=== PATIENT | male | born 1980 | race Caucasian/White ===

== ENCOUNTER 2021-09-11 05:36 | Emergency (ER) | payer OTHER ==
[2021-09-11 05:52] VITALS: BP 134/93; PULSE 81; RESP 18; TEMP 97.3
[2021-09-11] MEDS ORDERED: HYDROcodone/APAP 5-325MG 1 EACH TAB PO STA (06:04)
[2021-09-11] MEDS ORDERED: LIDOCAINE 1% INJ 10MG/ML (20 ML MDV) SQ ONE (06:14)
--- NOTE | 2021-09-11 06:17 | ED ---
Upper Extremity HPI - General Chief Complaint: Extremity Injury, Upper Stated Complaint: [facility] - Left Index finger injury Time Seen by Provider: 09/11/21 06:00 Source: patient, RN notes reviewed Mode of arrival: ambulatory Limitations: no limitations - History of Present Illness Initial Comments: This is a 41 year old male who presents to the emergency department with a laceration to the left index finger. States that he got this caught inbetween a machine at work this morning. Injury occurred 30 min prior to arrival. Pain is fairly severe, he is able to bend the PIP joint of the left index finger but not the DIP joint. Patient is unsure when his last Tetanus vaccine was. Also states that the machine was very dirty and he picked several glass shards out of his hand. MD Complaint: Injury to:: left, finger Other Injuries: none Place: work Treatments Prior to Arrival: cold therapy - Related Data Previous Rx's Medication Instructions Recorded Cephalexin [Keflex] 1 g PO BID 5 Days #10 cap 09/11/21 Allergies Allergy/AdvReac Type Severity Reaction Status Date / Time No Known Allergies Allergy Verified 09/11/21 05:47 Review of Systems ROS Statement: Those systems with pertinent positive or pertinent negative responses have been documented in the HPI. ROS Other: All systems not noted in ROS Statement are negative. Constitutional: Denies: fever, chills Respiratory: Denies: cough, dyspnea Cardiovascular: Denies: chest pain, palpitations Gastrointestinal: Denies: abdominal pain, nausea, vomiting Musculoskeletal: Reports: other (laceration and swelling to left index finger) Skin: Reports: other (laceration) Neurological: Denies: headache, weakness Past Medical History Past Medical History: No Reported History History of Any Multi-Drug Resistant Organisms: None Reported Past Surgical History: No Surgical Hx Reported Past Psychological History: No Psychological Hx Reported Smoking Status: Current every day smoker Past Alcohol Use History: None Reported Past Drug Use History: None Reported General Exam Limitations: no limitations General appearance: alert, in distress Head exam: Present: atraumatic, normocephalic, normal inspection Respiratory exam: Present: normal lung sounds bilaterally. Absent: respiratory distress, wheezes, rales, rhonchi, stridor Cardiovascular Exam: Present: regular rate, normal rhythm, normal heart sounds. Absent: systolic murmur, diastolic murmur, rubs, gallop, clicks Extremities exam: Present: other (Laceration with skin flap on the flexor surface of the left index finger between the DIP and PIP joint. Skin flap marcus sured 3 x 2 cm with a linear laceration measuring 2 cm underneath the skin flap. Bleeding controlled. ) Neurological exam: Present: alert, oriented X3, CN II-XII intact Psychiatric exam: Present: normal affect, normal mood Course Vital Signs 09/11/21 05:42 Temperature 97.3 F L Pulse Rate 81 Respiratory 18 Rate Blood Pressure 134/93 O2 Sat by Pulse 100 Oximetry Procedures - Laceration Laceration #1 Consent Obtained: verbal consent Indication: laceration Site: hand (left index finger) Size (cm): 2 Description: linear, flap (Skin flap was removed due to liklihood of necrosis and the linear laceration inferior to the flap was sutured. ), contaminated Depth: simple, single layer Sedation/Analgesia: none Anesthetic Used: lidocaine 1% Anesthesia Technique: local infiltration Amount (mls): 5 Pre-repair: wound explored, irrigated extensively, foreign body removed Size of Sutures: 5-0 Number of Sutures: 4 Technique: simple, interrupted Patient Tolerated Procedure: well Medical Decision Making - Medical Decision Making This is a 41 year old male who presents to the emergency department after sustaining a laceration to the left index finger. XR obtained to rule out fracture given the mechanism of injury. Tdap updated. Will discharge patient on 5 days of Keflex given the contamination of the wound. Patient advised that the contamination increases his risk of infection even with the antibiotics and extensive irrigation. He is advised to return to the emergency department if he develops any redness, swelling, drainage, fevers, or heat to the wound. He will return to the emergency department in 7-10 days for suture removal. Patient verbalizes understanding. This case was discussed in detail with the attending ED physician. Presentation, findings, and treatment plan discussed in detail as well. Disposition Clinical Impression: Laceration of index finger of left hand without complication Disposition: HOME SELF-CARE Instructions (If sedation given, give patient instructions): Care For Your Stitches (ED) Additional Instructions: Return to the emergency department in 7-10 days for suture removal. If you develop any redness, drainage, or fevers, return to the emergency department. Take the antibiotic as prescribed for 5 days. Prescriptions: Cephalexin [Keflex] 1 g PO BID 5 Days #10 cap Is patient prescribed a controlled substance at d/c from ED?: No Referrals: Nonstaff,Physician [Primary Care Provider] - 1-2 days
--- NOTE | 2021-09-11 06:35 | XR ---
EXAMINATION TYPE: XR finger LT DATE OF EXAM: 09/11/2021 COMPARISON: NONE HISTORY: Index finger injury TECHNIQUE: 3 views FINDINGS: I see no fracture nor dislocation. There is some soft tissue deformity over the anterior as pect of the middle phalanx of the index finger left hand and consistent with laceration. No foreign b bulmaro seen. IMPRESSION: No evidence of a foreign body. Soft tissue deformity.
[2021-09-11] MEDS ORDERED: DIPH,PERTUS(ACELL)TETVAC-LF 0.5 ML VIAL IM ONE (07:16)
== END 2021-09-11 07:52 | disposition home or self-care (01) ==
LOC: EC 05:36
DX: S61.211A Laceration without foreign body of left index finger without damage to nail, initial encounter (principal); W31.89XA Contact with other specified machinery, initial encounter; F17.200 Nicotine dependence, unspecified, uncomplicated
CPT/HCPCS: 99283; 90471; 12001; 73140; 90715; J2001

== ENCOUNTER 2023-07-05 12:53 | Emergency (ER) | payer OTHER ==
[2023-07-05 13:06] VITALS: TEMP 98.1
--- NOTE | 2023-07-05 15:01 | ED ---
ENT HPI - General Chief complaint: ENT Stated complaint: throat/mouth pain Time Seen by Provider: 07/05/23 14:48 Source: patient Mode of arrival: ambulatory Limitations: no limitations - History of Present Illness Initial comments: A 43-year-old male presenting to the ED with a chief complaint of cough. Patient states for the past week and a half has had intermittent cough and congestion. Reports that he was seen at an urgent care on and was prescribed prednisone and azithromycin. Patient reports despite taking these medications has had continued symptoms. Notes today he started to experience pain in his mouth and noticed white ulcers in his mouth. Denies fever. No chest pain or shortness of breath. No other complaints. - Related Data Previous Rx's Medication Instructions Recorded Cephalexin [Keflex] 1 g PO BID 5 Days #10 cap 09/11/21 Allergies Allergy/AdvReac Type Severity Reaction Status Date / Time No Known Allergies Allergy Verified 09/11/21 05:47 Review of Systems ROS Statement: Those systems with pertinent positive or pertinent negative responses have been documented in the HPI. ROS Other: All systems not noted in ROS Statement are negative. Past Medical History Past Medical History: No Reported History History of Any Multi-Drug Resistant Organisms: None Reported Past Surgical History: Orthopedic Surgery Additional Past Surgical History / Comment(s): steel plate in lower jaw after it was broken Past Psychological History: No Psychological Hx Reported Smoking Status: Current every day smoker Past Alcohol Use History: None Reported Past Drug Use History: None Reported General Exam Limitations: no limitations General appearance: alert, in no apparent distress ENT exam: Present: other (Apthous ulcer on the tongue) Neck exam: Present: normal inspection Respiratory exam: Present: normal lung sounds bilaterally Cardiovascular Exam: Present: regular rate, normal rhythm GI/Abdominal exam: Present: soft Neurological exam: Present: alert, oriented X3 Skin exam: Present: warm, dry Course Vital Signs 07/05/23 12:59 Temperature 98.1 F Pulse Rate 96 Respiratory 18 Rate Blood Pressure 141/100 O2 Sat by Pulse 97 Oximetry Medical Decision Making - Medical Decision Making Was pt. sent in by a medical professional or institution (, [facility], [facility] [employer], urgent care, hospital, or alf...) When possible be specific @ -No Did you speak to anyone other than the patient for history (EMS, parent, family, police, friend...)? What history was obtained from this source @ -No Did you review nursing and triage notes (agree or disagree)? Why? @ -I reviewed and agree with nursing and triage notes Were old charts reviewed (outside hosp., previous admission, EMS record, old EKG, old radiological studies, urgent care reports/EKG's, alf records)? Report findings @ -No old charts were reviewed Differential Diagnosis (chest pain, altered mental status, abdominal pain women, abdominal pain men, vaginal bleeding, weakness, fever, dyspnea, syncope, headache, dizziness, GI bleed, back pain, seizure, CVA, palpatations, mental health, musculoskeletal)? @ -Differential Dyspnea: Coronary syndrome, arrhythmia, tamponade, asthma, COPD, pulmonary embolism, pneumonia, pneumothorax, pulmonary effusion, anaphylaxis, diabetic ketoacidosis, flailed chest, pulmonary contusion, diaphragmatic rupture, anemia, neuromuscular, this is not meant to be an all-inclusive list. EKG interpreted by me (3pts min.). @ -None X-rays interpreted by me (1pt min.). @ -Chest x-ray interpreted by me showed no evidence of pneumonia or other acute process. CT interpreted by me (1pt min.). @ -None done U/S interpreted by me (1pt. min.). @ -None done What testing was considered but not performed or refused? (CT, X-rays, U/S, labs)? Why? @ -None What meds were considered but not given or refused? Why? @ -None Did you discuss the management of the patient with other professionals (professionals i.e. , PA, [employer], lab, RT, psych nurse, social work associate, door puller, teacher, financial aids officer, nurse case management)? Give summary @ -No Was smoking cessation discussed for >3mins.? @ -No Was critical care preformed (if so, how long)? @ -No Were there social determinants of health that impacted care today? How? (Homelessness, low income, unemployed, alcoholism, drug addiction, trans portation, low edu. Level, literacy, decrease access to med. care, correction, rehab)? @ -No Was there de-escalation of care discussed even if they declined (Discuss DNR or withdrawal of care, Hospice)? DNR status @ -No What co-morbidities impacted this encounter? (DM, HTN, Smoking, COPD, CAD, Cancer, CVA, ARF, Chemo, Hep., AIDS, mental health diagnosis, sleep apnea, morbid obesity)? @ -None Was patient admitted / discharged? Hospital course, mention meds given and route, prescriptions, significant lab abnormalities, going to OR and other pertinent info. @ -Discharge A 43-year-old male presenting to the ED with complaints of cough despite recent treatment with azithromycin and steroids. Additionally onset of ulceration in his mouth today. Exam consistent with aphthous ulcer. Chest x-ray showed no evidence of pneumonia or other acute process. At this time vital signs stable afebrile. Discharged home in stable condition. Discussed return precautions patient verbalizes agreement. Undiagnosed new problem with uncertain prognosis? @ -No Drug Therapy requiring intensive monitoring for toxicity (Heparin, Nitro, Insulin, Cardizem)? @ -No Were any procedures done? @ -No Diagnosis/symptom? @ -Cough Acute, or Chronic, or Acute on Chronic? @ -Acute Uncomplicated (without systemic symptoms) or Complicated (systemic symptoms)? @ -Uncomplicated Side effects of treatment? @ -No Exacerbation, Progression, or Severe Exacerbation? @ -No Poses a threat to life or bodily function? How? (Chest pain, [place], [place], pneumonia, PE, COPD, DKA, ARF, appy, cholecystitis, CVA, Diverticulitis, Homicidal, Suicidal, threat to staff... and all critical care pts) @ -No Disposition Clinical Impression: Cough Disposition: HOME SELF-CARE Condition: Good Instructions (If sedation given, give patient instructions): Acute Bronchitis (ED) Is patient prescribed a controlled substance at d/c from ED?: No Referrals: None,Stated [Primary Care Provider] - 1-2 days Time of Disposition: 16:10
--- NOTE | 2023-07-05 15:27 | XR ---
EXAMINATION TYPE: XR chest 2V DATE OF EXAM: 07/05/2023 COMPARISON: None INDICATION: Pneumonia TECHNIQUE: Frontal and lateral views of the chest are obtained. FINDINGS: The heart size is normal. The pulmonary vasculature is normal. The lungs are clear. IMPRESSION: 1. No acute pulmonary process.
[2023-07-05 16:50] VITALS: BP 136/92; PULSE 92; RESP 16
== END 2023-07-05 16:35 | disposition home or self-care (01) ==
LOC: EC 12:53
DX: R05.9 Cough, unspecified (principal); F17.200 Nicotine dependence, unspecified, uncomplicated; Z20.822 Contact with and (suspected) exposure to COVID-19
CPT/HCPCS: 71046; 87636; 99283